=== PATIENT | female | born 1955 | race Caucasian/White ===

== ENCOUNTER 2017-11-05 20:42 | Inpatient (IN) | payer OTHER ==
[~2017-11-05] VITALS: Ht 154.9 cm; Wt 57.2 kg
[~2017-11-05 20:42] MED LIST: ALLEGRA ALLERG180 MG PO; CARDIZEM120 MG PO; FLEXERIL PO; IBUPROFEN 800800 M1 PO; LISINOPRIL10 MG; NORCO 5-325 TA1 EACH PO; PREMARIN1.25 MG; SERTRALINE HCL50 MG PO; SYNTHROID25 MCG
[2017-11-05 20:52] VITALS: BP 177/100
[2017-11-05] MEDS ORDERED: BREO ELLIPTA 11 EACH INH (20:57)
[2017-11-05] MEDS ORDERED: AUGMENTIN 875-1 EACH (20:58)
[2017-11-05 21:28] LABS: ABSOLUTE BASOPHILS 0.1 thou/uL (0.0-0.2); ABSOLUTE EOSINOPHILS 0.1 thou/uL (0.0-0.7); ABSOLUTE MONOCYTES 0.5 thou/uL (0.0-1.2); ABSOLUTE NEUTROPHILS 4.8 thou/uL (1.6-8.1); BASOPHILS 0.6 %; EOSINOPHILS 1.4 %; HEMATOCRIT 42.9 % (37.0-47.0); HEMOGLOBIN 14.4 gm/dL (12.0-15.0); LYMPHOCYTES 41.9 %; MCH 29.3 pg (26.0-34.0); MCHC 33.6 g/dL (28.0-37.0); MCV 87.1 fL (80.0-100.0); MONOCYTES 5.2 %; MPV 7.3 fl. (7.2-11.1); NUCLEATED RBCS 0 /100WBC; PLATELET COUNT* 402 thou/uL (150-400); POLYS 50.9 %; RBC 4.92 mil/uL (4.20-5.00); RDW-CV 13.1 % (10.5-14.5); WBC 9.5 thou/uL (4.0-11.0)
[2017-11-05 21:43] LABS: ANION GAP 9 mmol/L (7-16); BUN 14 mg/dL (7-18); CHLORIDE 102 mmol/L (98-107); CO2 26 mmol/L (21-32); CREATININE 0.7 mg/dL (0.6-1.3); GLUCOSE 114 mg/dL (70-99); POTASSIUM 3.6 mmol/L (3.5-5.1); SODIUM 137 mmol/L (136-145)
[2017-11-05 21:50] LABS: ALBUMIN 3.7 g/dL (3.4-5.0); ALKALINE PHOSPHATASE 107 U/L (46-116); LIPASE 176 U/L (73-393); SGOT 14 U/L (15-37); SGPT 13 U/L (30-65); TOTAL BILIRUBIN 0.2 mg/dL (<0.1-1.0); TOTAL PROTEIN 7.5 g/dL (6.4-8.2); TROPONIN-I LEVEL <0.06 ng/mL (<0.06)
[2017-11-05 21:53] LABS: INFLUENZA A ANTIGEN None Detected (None Detect); INFLUENZA B ANTIGEN None Detected (None Detect)
[2017-11-05 22:02] LABS: URINE BILIRUBIN NEGATIVE (Negative); URINE BLOOD NEGATIVE (Negative); URINE CLARITY CLEAR; URINE COLOR YELLOW; URINE GLUCOSE-RANDOM NEGATIVE (Negative); URINE KETONES NEGATIVE (Negative); URINE LEUKOCYTES-REFLEX NEGATIVE (Negative); URINE NITRITE-REFLEX NEGATIVE (Negative); URINE PROTEIN NEGATIVE (Negative); URINE SPECIFIC GRAVITY <= 1.005 (1.005-1.030); URINE UROBILINOGEN 0.2 E.U./dl (0.2-1.0)
[2017-11-05 23:09] VITALS: BP 144/60
[2017-11-05 23:30] VITALS: BP 157/91
[2017-11-06 04:00] VITALS: BP 153/79
--- NOTE | 2017-11-06 05:38 | NUR ---
PATIENT ARRIVED TO UNIT BY CART FROM ER AT 2322 IN STABLE CONDITION ACCOMPANIED BY STAFF AND FAMILY. OVERNIGHT IVF'S, ANTIBIOTICS AND MEDS PER ORDERS. PATIENT CHILLING WITHOUT FEVER THIS AM. STATES HASN'T SLEPT WELL. IBUPROFEN PROVIDED AT THAT TIME. UP IN ROOM INDEPENDENTLY. ADEQUATE VOIDS. HAS DENIED NAUSEA. NON-PRODUCTIVE COUGH MINAMAL. HAS BEEN UNABLE TO PROVIDE SPUTUM SAMPLE FOR C/S. VITAL SIGNS STABLE. CONTINUE TO MONITOR.
[2017-11-06 08:00] VITALS: BP 155/76
[2017-11-06] MEDS ORDERED: SYNTHROID88 MCG PO (10:09)
[2017-11-06] MEDS ORDERED: LISINOPRIL10 MG PO (10:10)
[2017-11-06] MEDS ORDERED: ESTRADIOL 1 MG T1 M1 PO (10:11)
[2017-11-06] MEDS ORDERED: REQUIP 0.25 M0.25 M1 PO (10:11)
--- NOTE | 2017-11-06 13:43 | EKG ---
[place] [address] ELECTROCARDIOGRAM REPORT Name: YARA JARAMILLO Room: [address] ADM IN .R.#: [id number] Admission: 11/05/17 Attend Phys: Jose Miguel Taylor, Discharge: Date of : 55 Report #: [id number] THIS REPORT FOR: //name// [facility] ED Test Date: 2017-11-05 Test Time: 21:16:13 Pat Name: YARA JARAMILLO Department: Room: [facility] Gender: F Clicker Operator: : 1955 Requested By: Antonio Patrick Order Number: [id number] MD: Ryan Fox Measurements Intervals Olin Rate: 83 P: 34 IA: 130 QRS: 15 QRSD: 94 T: 36 QT: 385 QTc: 453 Interpretive Statements Sinus rhythm Left atrial enlargement Compared to ECG 09/24/2011 17:36:00 Atrial abnormality now present Ventricular premature complex(es) no longer present Electronically Signed On 11-06-2017 13:43:02 AUDIO/VISUAL MANAGER by Ryan Fox [email or web address] <ELECTRONICALLY SIGNED> By: Ryan Fox MD, FACC 11/06/17 1343 15 15 Ryan Fox MD, [facility] /EPI
--- NOTE | 2017-11-06 16:48 | NUR ---
PATIENT REMAINS ALERT AND ORIENTED. DENIES PAIN. NAUSEATED X1 THIS AFTERNOON, ZOFRAN EFFECTIVE. AFEBRILE. VSS. AMBULATES AD AMANDA. IVF SALINE LOCKED. CHEST XRAY ORDERED FOR AM. FAMILY AT BEDSIDE. WILL CONTINUE TO MONITOR.
[2017-11-06 17:19] VITALS: BP 148/76
[2017-11-06 19:45] VITALS: BP 167/76
[2017-11-07 01:28] VITALS: BP 145/71
--- NOTE | 2017-11-07 07:32 | NUR ---
ALERT AND ORIENTED. UP AD AMANDA TO BEDSIDE COMMODE. PAIN MEDICATION GIVEN AT BEDTIME FOR HEADACHE WITH SOME RELIEF. HAS PRODUCTIVE COUGH. CONTINUES ON IV ANTIBIODICS. O2 SAT ON ROOM AIR 96%. CALL LIGHT WITHIN REACH.
[2017-11-07 08:26] VITALS: BP 136/72
[2017-11-07 09:01] VITALS: BP 136/72
[2017-11-07] MEDS ORDERED: TYLENOL325 MG PO (09:06)
[2017-11-07] MEDS ORDERED: CEFUROXIME500 MG PO (09:08)
[2017-11-07] MEDS ORDERED: AZITHROMYCIN 2250 MG PO (09:10)
[2017-11-07 10:45] LABS: ABSOLUTE EOSINOPHILS 0.1 thou/uL (0.0-0.7); ABSOLUTE LYMPHOCYTES 2.6 thou/uL (0.8-5.3); ABSOLUTE MONOCYTES 0.4 thou/uL (0.0-1.2); ABSOLUTE NEUTROPHILS 6.2 thou/uL (1.6-8.1); BASOPHILS 0.4 %; EOSINOPHILS 1.4 %; HEMATOCRIT 41.3 % (37.0-47.0); HEMOGLOBIN 14.1 gm/dL (12.0-15.0); LYMPHOCYTES 27.8 %; MCH 29.7 pg (26.0-34.0); MCV 87.4 fL (80.0-100.0); MONOCYTES 4.6 %; NUCLEATED RBCS 0 /100WBC; PLATELET COUNT* 443 thou/uL (150-400); POLYS 65.8 %; RBC 4.73 mil/uL (4.20-5.00); WBC 9.4 thou/uL (4.0-11.0)
--- NOTE | 2017-11-07 11:37 | NUR ---
PATIENT DISCHARGED TO HOME AT THIS TIME. IV REMOVED. SCRIPTS FOR ZITHROMAX AND CEFTIN GIVEN. PATIENT VERBALIZES UNDERSTANDING OF DC INSTRUCTIONS. DISCHARGED WITH SPOUSE.
== END 2017-11-07 11:40 | disposition home or self-care (01) | DRG 153 ==
LOC: M.ERS 20:42 → M.TBA-ER 22:24 → M.ORTHSURG 22:24
PROVIDERS: Emergency Medicine Emergency Medical Services; ADMIT Family Medicine
DX: J01.90 Acute sinusitis, unspecified (principal); I10 Essential (primary) hypertension; E03.9 Hypothyroidism, unspecified; F41.9 Anxiety disorder, unspecified; M41.9 Scoliosis, unspecified; F32.9 Major depressive disorder, single episode, unspecified; F12.90 Cannabis use, unspecified, uncomplicated; J32.9 Chronic sinusitis, unspecified; B96.89 Other specified bacterial agents as the cause of diseases classified elsewhere; J40 Bronchitis, not specified as acute or chronic; Z88.6 Allergy status to analgesic agent; Z90.710 Acquired absence of both cervix and uterus; Z79.899 Other long term (current) drug therapy